=== PATIENT | male | born 1960 | race African-American/Black ===

== ENCOUNTER 2022-10-27 16:55 | Emergency (ER) | payer MEDICARE ==
[~2022-10-27] VITALS: Ht 167.6 cm; Wt 75.7 kg
[~2022-10-27 16:55] MED LIST: ETODOLAC ER400 MG OR; NEURONTIN300 MG OR; PRILOSEC40 MG OR; ULTRAM50 MG OR; ZOFRAN ODT4 MG OR; ZOFRAN4 MG/TAB PO
[2022-10-27 17:02] VITALS: BP 130/88
[2022-10-27 17:15] VITALS: BP 112/86
[2022-10-27 17:16] LABS: BASO% 0.2 % (0-3); EOS% 1.4 % (0-8); HEMATOCRIT 39.7 % (39.0-50.0); HEMOGLOBIN 13.4 g/dl (14.0-18.0); IMMATURE GRANULOCYTES 0.1 % (0.0-5.0); LYMPH% 45.2 % (15-41); MEAN CELL VOLUME 101.8 fL CALC (80.0-100.0); MEAN CORPUSCULAR HGB 34.4 pG CALC (26.0-32.0); MEAN CORPUSCULAR HGB CONC 33.8 g/dL CAL (32.0-36.0); MONO% 12.6 % (2-13); NEUT# 3.57 thou/uL (1.82-7.42); NEUT% 40.5 % (42-76); RED BLOOD COUNT 3.9 mill/uL (4.70-6.10); RED CELL DISTRI WIDTH 12.5 % (11.5-15.5)
[2022-10-27 17:30] VITALS: BP 119/81
[2022-10-27 17:45] VITALS: BP 107/78
[2022-10-27 18:15] LABS: ALBUMIN 4.1 g/dL (3.2-5.0); ALKALINE PHOSPHATASE 71 u/l (38-126); BILIRUBIN, TOTAL 0.5 mg/dL (0.2-1.3); BUN 5 mg/dL (9-20); BUN/CREATININE RATIO 7 (12-20 (CALC)); CHLORIDE 100 mmol/l (95-108); CREATININE 0.8 mg/dL (0.7-1.3); GFR FOR AFR.AMER. > 60 ML/MIN (>=60 (CALC)); GFR OTHER RACES > 60 ML/MIN (>=60 (CALC)); POTASSIUM 3.4 mmol/l (3.5-5.1); SGOT/AST 33 u/l (17-59); SODIUM 134 mmol/l (137-146); TOTAL PROTEIN 7.8 g/dL (6.3-8.2)
[2022-10-27 18:16] LABS: ANION GAP 14 (6-22 (CALC)); CARBON DIOXIDE 23 mmol/l (22-30)
[2022-10-27 19:30] VITALS: BP 107/78
== END 2022-10-27 18:50 | disposition left against medical advice (07) ==
LOC: ED 16:55
PROVIDERS: Family Medicine
DX: R07.9 Chest pain, unspecified (principal); I10 Essential (primary) hypertension; E78.5 Hyperlipidemia, unspecified; Z53.29 Procedure and treatment not carried out because of patient's decision for other reasons; F17.200 Nicotine dependence, unspecified, uncomplicated